=== PATIENT | female | born 1975 | race Caucasian/White ===

== ENCOUNTER 2016-03-01 20:46 | Emergency (ER) | payer MEDICARE, MEDICAID ==
[2016-03-01 20:52] VITALS: TEMP 97.8; BMI 57.7
--- NOTE | 2016-03-01 21:24 | EDPRACDOC ---
- General Information Chief Complaint: Back Pain Stated Complaint: BACK PAIN Time Seen by Provider: 03/01/16 20:52 Information Source: Patient Mode Of Arrival: Ambulance Home Medications: Home Medications Alprazolam [Xanax] 1 mg PO TID PRN 11/30/13 Levothyroxine [Synthroid, Levoxyl] 150 mcg PO DAILY 09/13/14 Propranolol HCl [Inderal] 20 mg PO DAILY 01/28/15 Trazodone HCl [Desyrel] 200 mg PO QHS 01/28/15 Promethazine HCl 25 mg PO PRN 04/05/15 Albuterol Sulfate [Proair Hfa] 2 puff INH Q4-6H PRN 12/01/15 Buprenorphine HCl/Naloxone HCl [Suboxone SL Film (8 mg/2 mg)] 8 mg SL BID Citalopram (anti-depressant) [Celexa] 40 mg PO DAILY 12/01/15 Acetaminophen [Tylenol] 650 mg PO Q6-8H PRN 02/04/16 Vits W-Ca,Fe,FA(<1Mg) [] 1 tab PO DAILY 02/04/16 Allergies/Adverse Reactions: Allergies Allergy/AdvReac Type Severity Reaction Status Date / Time sumatriptan [From Imitrex] Allergy Unknown UNKNOWN Verified 03/01/16 19:21 - History of Present Illness Onset: CHRONIC HPI: PT PRESENTS WITH LOWER BACK PAIN CHRONIC IN NATURE. SHE IS 21 WEEKS WITH A HISTORY OF HEART FAILURE. SEEN BY [facility] WITHOUT PROBLEM FOUND. CAME TO ER FOR EVALUATION. SAYS HER MOTHER CALLED EMS BECAUSE SHE WAS VERY SOMNOLENT AFTER TAKING TRAZODONE AND XANAX. Pain Location: Reports: Lower Pain Radiates To: Reports: None Pain Caused By: Reports: Spontaneous Pain Severity: Reports: Moderate Pain Quality: Reports: Aching Associated Signs and Symptoms: Reports: Nausea. Denies: Dysuria, Vomiting ED Past Medical History - History Reviewed Yes Nurses notes reviewed and agree except as marked - Patient Medical History Cardiac History: Reports: Atrial Fibrillation, Hypertension, Congestive Heart Failure Respiratory History: Reports: Asthma, COPD GI/ History: Reports: Gastroesophageal Reflux Psychological History: Reports: Anxiety, Bipolar Disorder, Substance Use Disorder. 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 negative: Pain Musculoskeletal: Back (LOWER) - Physical Exam Constitutional: Somnolent Oriented to: Time, Person, Place Last recorded Vital Signs: Last Vital Signs Temp 97.8 F 03/01/16 20:49 Pulse 78 03/01/16 20:49 Resp 20 03/01/16 20:49 BP 110/59 L 03/01/16 20:49 Pulse Ox 95 03/01/16 20:49 Oxygen Pulse Oxygen Saturation 95 O2 Device Oxygen Flow Rate Fraction of Inspired Oxygen ( FIO2) - HEENT Head: negative: Deformity, Laceration Eye Exam: negative: Conjunctival Injection, Pale Conjunctiva Oropharynx: negative: Membranes Dry Nose: negative: Congestion, Discharge Neck: negative: Limited ROM - Respiratory/Cardiovascular Respiratory: Normal - CTA. negative: Accessory Muscle Use, Diminished, Tachypnea Cardiovascular: negative: Bradycardia, Tachycardia, Irregular - GI Auscultation: Normal Palpation: Normal Tenderness: Non tender - Musculoskeletal Extremities: Radial Pulse (PALPABLE) - Integumentary Skin: Warm, Dry. negative: Rash - Neurologic Memory Impaired: Normal Motor Function: Normal Mood Description: Flat Thought: Coherent Perception: Normal - Results 03/01/16 22:00 03/01/16 22:00 - EKG EKG #1 EKG Time: 21:29 -: Yes EKG interpreted by me Rate: bpm: 76 [place]: Normal Rhythm: NSR Block: None Hypertrophy: None ST: Normal Decision Time to Discharge: 22:45 - Departure Yes I personally saw and evaluated the patient. Disposition: Home Condition: Stable Final Diagnosis: Chronic back pain Qualifiers: Back pain location: low back pain Back pain laterality: unspecified Sciatica presence: unspecified whether sciatica present Qualified Code(s): M54.5 - Low back pain; G89.29 - Other chronic pain Instructions: Core Strengthening Exercises (GEN), Back Pain Education/Counseling Given To: Patient Education/Counseling Given Regarding: Diagnosis, Treatment, Prognosis, Follow Up Referrals: Anisha Bowman, DO [Primary Care Provider] - Call for Appointment Additional Instructions: MAKE SURE TO TAKE YOUR MEDICATIONS ONLY PRESCRIBED AND NEVER MORE THAN THIS. TYLENOL NEEDED FOR PAIN.
[2016-03-01 22:11] LABS: AUTOMATED BASOPHIL 0.5 % (0-2); AUTOMATED EOSINOPHIL 0.8 % (0-5); AUTOMATED LYMPH 19.9 % (17-44); AUTOMATED MONOCYTE 9.3 % (3-10); AUTOMATED NEUTROPHIL 69.5 % (45-76); MPV 8.1 fL (7.4-10.4)
[2016-03-01 22:22] LABS: PARTIAL THROMB. TIME 24.1 SEC (22-35)
[2016-03-01 22:24] LABS: LEUKOCYTES/URINE NEG (NEGATIVE); NITRITE/URINE NEG (NEGATIVE); URINE OCCULT BLOOD NEG (NEG/TRACE)
[2016-03-01 22:26] LABS: BLOOD UREA NITROGEN 7 MG/DL (7-17); CALC CORRECTED 9.6 MG/DL (8.4-10.2); CALCIUM 8.6 MG/DL (8.4-10.2); CALCULATED OSMOLALITY 263 MOs/Kg (270-290); CHLORIDE 105 mEq/L (98-107); GLUCOSE 83 MG/DL (70-99); SODIUM LEVEL 138 mEq/L (137-146); TOTAL PROTEIN 6.2 G/DL (6.3-8.2)
[2016-03-01 22:57] VITALS: BP 106/60; PULSE 77
== END 2016-03-01 23:10 | disposition left against medical advice (07) ==
LOC: ED 20:46
DX: M54.5 Low back pain (principal); G89.29 Other chronic pain
CPT/HCPCS: 36415; 80053; 81001; 84484; 85025; 85610; 85730; 93005; 99283